=== PATIENT | male | born 1980 | race Two or more races ===

== ENCOUNTER → 2024-02-21 | Outpatient (CLI) | payer MEDICAID, SELFPAY ==
--- NOTE | 2024-02-21 16:53 | XR_ITS ---
Examination: Wrist, right 3 views Technique: Wrist AP, oblique, lateral 3 views Date and time of exam: February 21, 2024 1654 hours INDICATIONS: Chronic left wrist pain, history radius fracture FINDINGS: Moderate osteopenia Moderate narrowing radiocarpal joint No fracture or dislocation IMPRESSION: Moderate narrowing radiocarpal joint
== END | disposition home or self-care (01) ==
PROVIDERS: PCP Family Medicine; Referring Provider Surgery; Visit Provider Surgery
DX: M25.831 Other specified joint disorders, right wrist (principal)
CPT/HCPCS: 73110

== ENCOUNTER → 2024-02-27 | Outpatient (CLI) | payer MEDICAID, SELFPAY ==
--- NOTE | 2024-02-27 10:38 | XR_ITS ---
Examination: Hand, right 3 views Technique: Hand AP, oblique, lateral 3 views Date and time of exam: February 27, 2024 1123 hours INDICATIONS: Hand pain months. FINDINGS: Moderate juxta-articular bone demineralization No fracture at the base of the proximal phalanx first digit unchanged in position, 2 mm offset at the fracture site, 6 mm displaced fracture fragment IMPRESSION: Again noted 6 mm mildly displaced fracture fragment off the base of the proximal phalanx first digit
== END | disposition home or self-care (01) ==
LOC: CDIM 10:29
PROVIDERS: Referring Provider Surgery; Visit Provider Surgery
DX: S62.511A Displaced fracture of proximal phalanx of right thumb, initial encounter for closed fracture (principal); X58.XXXA Exposure to other specified factors, initial encounter
CPT/HCPCS: 73130

== ENCOUNTER → 2024-06-05 | Outpatient (CLI) | payer MEDICAID, SELFPAY ==
--- NOTE | 2024-06-05 16:23 | XR_ITS ---
Examination: Wrist, right 3 views Technique: Wrist AP, oblique, lateral 3 views Date and time of exam: June 05, 2024 1634 hrs. Indications: Injury to the wrist February 06 2024 with persistent wrist pain. Findings: Mild narrowing radiocarpal joint No fracture or dislocation Impression: No fracture or dislocation
== END | disposition home or self-care (01) ==
LOC: CDIM 16:19
PROVIDERS: Referring Provider Nurse Practitioner Gerontology; Visit Provider Nurse Practitioner Gerontology
DX: M25.531 Pain in right wrist (principal); S69.91XS Unspecified injury of right wrist, hand and finger(s), sequela; X58.XXXS Exposure to other specified factors, sequela
CPT/HCPCS: 73110